=== PATIENT | female | born 1995 | race African-American/Black ===

== ENCOUNTER 2016-12-12 20:25 | Emergency (ER) | payer OTHER ==
[~2016-12-12] VITALS: Ht 167.6 cm; Wt 52.2 kg
[2016-12-12] MEDS ORDERED: FLAGYL500 MG PO (21:10)
[2016-12-12 22:10] VITALS: BP 140/81
== END 2016-12-12 22:15 | disposition home or self-care (01) ==
LOC: ER 20:25
DX: Z20.2 Contact with and (suspected) exposure to infections with a predominantly sexual mode of transmission (principal); J45.909 Unspecified asthma, uncomplicated; Z88.0 Allergy status to penicillin